=== PATIENT | male | born 1960 | race Caucasian/White ===

== ENCOUNTER 2018-12-17 15:02 | Outpatient (CLI) | payer OTHER ==
--- NOTE | 2018-12-17 15:39 | ULT ---
EXAM: US Testicular W Doppler PROVIDED CLINICAL HISTORY: Left inguinal mass COMPARISON: None FINDINGS: Right testicle measures about 3.8 x 3.2 x 2.8 cm and demonstrates a normal sonographic appearance. Th e right epididymis appears normal. The left testicle measures about 3 x 3.7 x 2.5 cm and demonstrates a normal grayscale sonographic clark earance. The left epididymis is not visualized. The left testicle is displaced inferiorly by peristalsing bowel. Color Doppler and spectral analysis of the testicular waveforms demonstrates flow bilaterally. There is no evidence for varicocele. IMPRESSION: Large bowel containing left inguinal hernia.
== END 2018-12-17 15:03 | disposition home or self-care (01) ==
LOC: BICULT 15:02
PROVIDERS: ATTEND Family Medicine
DX: K40.90 Unilateral inguinal hernia, without obstruction or gangrene, not specified as recurrent (principal)
CPT/HCPCS: 76870; 93976

== ENCOUNTER 2019-03-02 15:31 | Outpatient (CLI) | payer MEDICAID ==
[2019-03-03 08:56] LABS: ALT (SGPT) 14 U/L (8-55); AST (SGOT) 19 U/L (5-34); Albumin 4.3 g/dL (3.5-5.0); Alkaline Phosphatase 77 U/L (40-110); Anion Gap 15 mmol/L (10-20); BUN (Urea Nitrogen) 19 mg/dL (8.4-25.7); Bilirubin, Total 0.2 mg/dL (0.2-1.2); Calc. Creatinine Clearance 0 mL/min (70-130); Calcium 9.6 mg/dL (7.8-10.44); Carbon Dioxide 24 mmol/L (22-29); Chloride 104 mmol/L (98-107); Estimated GFR-MDRD 79; Globulin 3.3 g/dL (2.4-3.5); Glucose 70 mg/dL (70-105); Potassium 4.6 mmol/L (3.5-5.1); Protein, Total 7.6 g/dL (6.0-8.3); Sodium 138 mmol/L (136-145)
[2019-03-03 09:01] LABS: #Eosinphils 0.1 thou/uL (0.0-0.7); #Lymphocytes 1.8 thou/uL (1.20-3.40); #Monocytes 0.9 thou/uL (0.11-0.59); #Neutrophils 5.1 thou/uL (1.40-6.50); %Basophils 0.5 % (0.0-1.0); %Eosinophils 1.4 % (0.0-10.0); %Lymphocytes 23.1 % (21.0-51.0); %Monocytes 10.8 % (0.0-10.0); %Neutrophils 64.3 % (42.0-75.0); Hemoglobin 11.9 g/dL (14.0-18.0); Mean Corpuscular HGB CONC 32.2 g/dL (32.0-36.0); Mean Corpuscular Hemoglobin 30.5 pg (27.0-31.0); Mean Corpuscular Volume 94.6 fL (78.0-98.0); Mean Platelet Volume 6.6 fL (7.4-10.4); Platelet Count 388 thou/uL (130-400); RBC Distribution Width 13.7 % (11.5-14.5); White Blood Cell (WBC) Count 7.9 thou/uL (4.8-10.8)
--- NOTE | 2019-03-04 17:45 | EKG ---
Test Reason : Blood Pressure : / mmHG Vent. Rate : 075 BPM Atrial Rate : 075 BPM P-R Int : 144 ms QRS Dur : 106 ms QT Int : 390 ms P-R-T Axes : 043 -41 -11 degrees QTc Int : 435 ms Normal sinus rhythm Left axis deviation Incomplete right bundle branch block Abnormal ECG No previous ECGs available Confirmed by John RODRIGUEZ ([id number]) on 03/04/2019 5:45:06 PM Referred By: DEISY Confirmed By:John RODRIGUEZ
== END 2019-03-02 15:32 | disposition home or self-care (01) ==
LOC: LABBT 15:31
PROVIDERS: ATTEND Surgery
DX: Z01.818 Encounter for other preprocedural examination (principal); K40.90 Unilateral inguinal hernia, without obstruction or gangrene, not specified as recurrent
CPT/HCPCS: 80053; 85025; 93005; 93010

== ENCOUNTER 2019-04-27 09:47 | Day surgery (SDC) | payer OTHER ==
[2019-04-26 11:14] VITALS: BMI 26.4
[~2019-04-27 09:47] MED LIST: Dexamethasone 20 MG/5 ML VIAL ONE; Ketorolac Tromethamine 30 MG/ML VIAL ONE; Lidocaine 1% PF 5 ML VIAL ONE; Ondansetron PF 4 MG/2 ML Vial ONE; PHENYLEPHRINE-NS 100 MCG/ML 10 ML SYRINGE ONE; PROPOFOL 200 MG/20 ML VIAL ONE; Rocuronium Bromide 10 MG/ML (10ML VIAL) ONE; ePHEDrine/0.9% NaCl/PF SYRINGE 50 mg/10 ml ONE
[2019-04-27] MEDS ORDERED: Levofloxacin 500 mg/D5W 100 ml Premix Bag ONE (10:14)
[2019-04-27 10:42] LABS: #Basophils 0.1 thou/uL (0.0-0.2); #Eosinphils 0.1 thou/uL (0.0-0.7); #Lymphocytes 1.6 thou/uL (1.20-3.40); #Monocytes 0.8 thou/uL (0.11-0.59); #Neutrophils 6.8 thou/uL (1.40-6.50); %Basophils 0.7 % (0.0-1.0); %Eosinophils 1.5 % (0.0-10.0); %Lymphocytes 16.7 % (21.0-51.0); %Monocytes 8.9 % (0.0-10.0); %Neutrophils 72.3 % (42.0-75.0); Hemoglobin 12.4 g/dL (14.0-18.0); Mean Corpuscular HGB CONC 32.9 g/dL (32.0-36.0); Mean Corpuscular Hemoglobin 29.1 pg (27.0-31.0); Mean Corpuscular Volume 88.3 fL (78.0-98.0); Platelet Count 389 thou/uL (130-400); RBC Distribution Width 12.6 % (11.5-14.5); Red Blood Cell (RBC) Count 4.27 mill/uL (4.70-6.10); White Blood Cell (WBC) Count 9.3 thou/uL (4.8-10.8)
[2019-04-27 11:11] LABS: ALT (SGPT) 14 U/L (8-55); AST (SGOT) 17 U/L (5-34); Albumin 4.4 g/dL (3.5-5.0); Alkaline Phosphatase 83 U/L (40-110); Anion Gap 13 mmol/L (10-20); BUN (Urea Nitrogen) 14 mg/dL (8.4-25.7); Bilirubin, Total 0.4 mg/dL (0.2-1.2); Calc. Creatinine Clearance 106 mL/min (70-130); Calcium 9.7 mg/dL (7.8-10.44); Carbon Dioxide 25 mmol/L (22-29); Chloride 104 mmol/L (98-107); Estimated GFR-MDRD 83; Globulin 3.3 g/dL (2.4-3.5); Glucose 96 mg/dL (70-105); Potassium 4.4 mmol/L (3.5-5.1); Protein, Total 7.7 g/dL (6.0-8.3); Sodium 138 mmol/L (136-145)
[2019-04-27] MEDS ORDERED: Bupivacaine 0.25% HCL 30 ML VIAL ONE (11:30)
[2019-04-27] MEDS ORDERED: Lidocaine 1% w/Epinephrine 1:100K 20 ML VIAL ONE (11:30)
[2019-04-27] MEDS ORDERED: Fentanyl 100 MCG/2 ML VIAL ONE ×2 (11:41→12:07)
[2019-04-27] MEDS ORDERED: Midazolam HCl 2 mg/2 ml Vial ONE (11:41)
--- NOTE | 2019-04-27 12:28 | HP ---
CHIEF COMPLAINT: Left inguinal hernia. HISTORY: The patient is a 58-year-old male, with a several year history of enlarging left inguinal hernia. It is causing pain and constipation. PAST MEDICAL HISTORY: Significant for atrial fibrillation, left inguinal hernia, back pain, bilateral lower extremity neuropathy, constipation, allergies, chronic pain. MEDICATIONS: 1. Toprol. 2. Coumadin. 3. Tylenol. PAST SURGICAL HISTORY: Include nasal fracture, colon cancer screening, prostate cancer. FAMILY HISTORY: Both parents are . SOCIAL HISTORY: He lives alone. No previous alcohol use. Previous tobacco use. ALLERGIES: PENICILLIN. PHYSICAL EXAMINATION: VITAL SIGNS: Height 73, weight 195, body mass index 25.7. GENERAL: A well-developed, well-nourished male, in no apparent distress. HEENT: Unremarkable. LUNGS: Clear. HEART: Regular rate and rhythm. ABDOMEN: Soft, nontender. Good bowel sounds. No masses. EXTREMITIES: Good pulses. No pedal edema. He has a very large scrotal left inguinal hernia, partially incarcerated. ASSESSMENT: Large left inguinal hernia. PLAN: Left inguinal hernia repair with mesh. CONSENT: I have discussed planned procedure as well as risk of bleeding, infection, injury to nerves, bowel and recurrence of the hernia. He understands and gives informed consent. Job ID: [id number]
[2019-04-27] MEDS ORDERED: HYDROcodone/Acetaminophen 5/325 mg Tablet ONE (15:18)
--- NOTE | 2019-04-28 07:23 | OP ---
DATE OF PROCEDURE: 04/27/2019 PREOPERATIVE DIAGNOSIS: Large scrotal left inguinal hernia. PROCEDURE PERFORMED: Left inguinal hernia repair with mesh. INDICATIONS: A 58-year-old male, with a very large left inguinal hernia. He has had partial obstructions, sometimes difficult to reduce. FINDINGS: A very large scrotal indirect left inguinal hernia. DESCRIPTION OF PROCEDURE: After informed consent was obtained, the patient was taken to the operating room and given general endotracheal anesthesia and placed in supine position. Abdomen and scrotum were prepped and draped in the usual fashion. Local anesthesia infiltrated subcutaneously and deep. A transverse left inguinal incision was performed, subcu divided sharply. The fascia of external oblique was incised in direction of fibers through the external ring. The hernia sac was very large. I was able to get its contents reduced and then isolated the cord with this large sac with a [place] drain. Through series of dissection, I was able to separate the hernia sac from surrounding cord structures down to the internal ring and reduced. Reduction was maintained with a PHS hernia system extended. The posterior layer was placed in the preperitoneal space medially it was sutured to the pubic tubercle with a 2-0 Prolene suture, laterally tucked under the external oblique fascia, but also secured with a 2-0 Prolene suture, also sutured at along the reflected edge of the inguinal ligament with interrupted 2-0 Prolene suture due to the large defect that was in place. A notch was cut out for the spermatic cord. The cord placed on top of the mesh. Hemostasis was assured. The external oblique fascia closed with a running 3-0 Vicryl, Paulino was closed with interrupted 3-0 Vicryl, and skin closed with a running subcuticular 4-0 Rapide. Steri-Strips applied. Sterile bandage applied. The patient tolerated the procedure well, transferred to Recovery in good condition. Sponge and needle count verified correct x2. Job ID: [id number]
== END 2019-04-27 17:05 | disposition home or self-care (01) ==
LOC: SDC 09:47
PROVIDERS: ATTEND Surgery
PROC: 0YU60JZ Supplement Left Inguinal Region with Synthetic Substitute, Open Approach (ICD-10-PCS; principal; 2019-04-27)
DX: K40.90 Unilateral inguinal hernia, without obstruction or gangrene, not specified as recurrent (principal); I48.91 Unspecified atrial fibrillation; G89.4 Chronic pain syndrome; G62.9 Polyneuropathy, unspecified; Z87.891 Personal history of nicotine dependence; Z79.01 Long term (current) use of anticoagulants; Z79.899 Other long term (current) drug therapy; Z88.0 Allergy status to penicillin
CPT/HCPCS: 36415; 80053; 85025; C1781; J1100; J1885; J1956; J2001; J2250; J2405; J2704; J3010; S0020